=== PATIENT | female | born 1990 | race Caucasian/White ===

== ENCOUNTER 2024-10-17 19:58 | Inpatient (IN) ==
[2024-10-17] MEDS ORDERED: LIDOCAINE 1% LOCAL 20 ML VIAL INFIL PRN (20:22)
[2024-10-17] MEDS ORDERED: CALCIUM CARBONATE 500 MG CHEWABLE TAB PO PRN (20:22)
--- NOTE | 2024-10-17 20:27 | History & Physical Report ---
Date of Service October 17, 2024 Assessment & Plan (1) Active labor at term: Plan: 34-year-old -0-0-1 at 39 weeks 1 day gestation presenting today in active labor, Vital signs stable afebrile, heart rate reassuring, GBS negative, Plan to admit, monitor, labs, epidural for pain, anticipate , All questions were answered. History of Present Illness Chief Complaint: Contractions Primary Care Provider: Anil Avila DO Patient is a 34 yo at 39.1 wks who has been feeling contractions since 4 pm, got more regular and painful about 1-2 hours ago No LOF/VB +FM Her has been complicated by 1) h/o Thyroid ca, s/p total thyroidectomy in 2021, iodine ablation 2) anemia GBS negative Allergies Allergy/AdvReac Type Severity Reaction Status Date / Time Penicillins Allergy Rash Verified 10/17/24 20:14 Home Medications Medication Instructions Recorded Confirmed Type levothyroxine 150 mcg tablet 150 mcg PO DAILY 10/17/24 10/17/24 History [id number]-FA 1 mg 1 tab PO DAILY 10/17/24 10/17/24 History tablet Patient History Medical History Clomid Retained placenta Hypothyroid Thyroid cancer Social History Smoking Status: Never smoker Hx Alcohol Use: No Hx Substance Use: No Preferred Language: Citizen Of [place] Communication Ability: Effective [employer] Required: No Beliefs That Will Affect Care: None marital status: Maried Current Living Situation: Family Other Information That Helps Us Care for You: No Feels Safe at Home: Yes Safety Concerns: Feels Safe At This Time Assistive Devices: None OB History FT in 2019, 9 LB OXYACETYLENE BURNER History No h/o STD's, no h/o chlamydia/ GC/ HSV Review of Systems as per Subjective / HPI Physical Exam Constitutional: WD/WN, vitals as above well developed, well nourished, + acute distress (with contractions) and + thin Gastrointestinal (Abdomen): normal bowel sounds, soft, nontender, no hepatosplenomegaly Genitourinary: normal external appearance OB Exam Abdomen: + vertex Manual OB Exam: + cervical dilation 5 cm, + cervical effacement 70% and + station -2 OB Exam Monitor Tracing: + external uterine monitor used and + category I Results & Data Vital Signs (Past 12 Hours) Vital Signs Pulse BP 10/17/24 20:06 86 124/76
[2024-10-17] MEDS ORDERED: ePHEDrine sulfate 50 MG/ML AMP ONE (21:00)
[2024-10-17] MEDS: LACTATED RINGER'S 1,000 ML IV SCH (21:00)
[2024-10-17 21:28] LABS: Hematocrit (blood only) 33.9 % (37.0-47.0); Hemoglobin 11.7 g/dl (12.0-16.0); Mean Corpuscular Hemoglobin 31.9 pg (25.0-34.0); Mean Corpuscular Hgb Conc 34.5 g/dL (32.0-36.0); Mean Corpuscular Volume 92.4 fL (80.0-100.0); Mean Platelet Volume 12.7 fL (9.4-12.4); Platelet Count 162 K/uL (130-400); RDW Coefficient of Variation 12.2 % (11.5-14.5); Red Blood Count 3.67 M/uL (4.20-5.40); White Blood Count 9.05 K/ul (4.8-10.8)
[2024-10-17] MEDS ORDERED: BUPIVACAINE 0.25% PF 30 ML VIAL EPI PRN (21:50)
[2024-10-17] MEDS ORDERED: fentaNYL citrate PF 100 MCG/2 ML VIAL EPI PRN (21:50)
[2024-10-17] MEDS ORDERED: fentANYL 2 MCG/ML BUPIVacaine 0.125%-NSS 100ML BAG EPI PRN (21:50)
[2024-10-17] MEDS ORDERED: diphenhydrAMINE 50 MG/ML VIAL IV PRN (21:50)
[2024-10-17] MEDS ORDERED: NALOXONE HCL 0.4 MG/1 ML VIAL/CARP IV PRN (21:50)
[2024-10-17] MEDS ORDERED: ROPIVACAINE 0.5% PF 5 MG/ML 20 ML VIAL EPI PRN (21:50)
[2024-10-17] MEDS ORDERED: ePHEDrine sulfate 50 MG/ML AMP IV PRN (21:50)
[2024-10-17] MEDS ORDERED: SODIUM CHLORIDE 0.9% PF INJ 10 ML VIAL EPI PRN (21:50)
[2024-10-17] MEDS ORDERED: NALBUPHINE HCL INJ 10 MG/ML AMP IV PRN (21:50)
[2024-10-17] MEDS ORDERED: LIDOCAINE 2% MPF LOCAL 5 ML VIAL EPI PRN (21:50)
[2024-10-17] MEDS ORDERED: NALOXONE HCL 1 MG in SODIUM CHLORIDE 0.9% 1,000 ML IV PRN (21:50)
--- NOTE | 2024-10-17 21:50 | Anesthesiology Consultation ---
Date of Service October 17, 2024 Assessment & Plan (1) Encounter for pre-operative examination: Chart Review Chart Review: Patient NOT seen in Pre Admission Testing and Acceptable Risk for Labor Epidural Consults Requested none History Height/Weight Height: 5 ft 8 in Weight: 68.039 kg Allergies Allergy/AdvReac Type Severity Reaction Status Date / Time Penicillins Allergy Rash Verified 10/17/24 20:14 Medications Home Medications Medication Instructions Recorded Confirmed Last Taken levothyroxine 150 mcg tablet 150 mcg PO DAILY 10/17/24 10/17/24 1 Day Ago ~10/16/24 pzjmhobs-wjf-Mj-FA 1 mg 1 tab PO DAILY 10/17/24 10/17/24 1 Day Ago tablet ~10/16/24 Past Medical History Medical History Clomid Retained placenta Hypothyroid Thyroid cancer Social History Smoking Status: Never smoker Hx Alcohol Use: No Hx Substance Use: No Physical Exam Vital Signs Last Vital Signs Temp 98.2 F 10/17/24 20:16 Pulse 75 10/17/24 21:48 Resp 16 10/17/24 20:16 BP 124/76 10/17/24 20:06 Pulse Ox 96 10/17/24 21:48 Testing Laboratory Results 10/17/24 21:02
[2024-10-17] MEDS: fentANYL 2 MCG/ML BUPIVacaine 0.125%-NSS 100ML BAG ONE (22:08)
[2024-10-17] MEDS: LIDOCAINE 2%/EPINEPHRINE 1:200,000 20 ML PF ONE (22:08)
[2024-10-17] MEDS: BUPIVACAINE 0.25% PF 30 ML VIAL EPI STA (22:08)
[2024-10-17] MEDS: BUPIVACAINE 0.25% PF 30 ML VIAL ONE (22:08)
[2024-10-17] MEDS: SODIUM CHLORIDE 0.9% PF INJ 10 ML VIAL ONE (22:08)
[2024-10-17] MEDS: fentaNYL citrate PF 100 MCG/2 ML VIAL EPI STA (22:09)
[2024-10-17] MEDS: LIDOCAINE 2%/EPINEPHRINE 1:200,000 20 ML PF EPI STA (22:09)
[2024-10-17] MEDS: SODIUM CHLORIDE 0.9% PF INJ 10 ML VIAL EPI STA (22:09)
[2024-10-17] MEDS: fentaNYL citrate PF 100 MCG/2 ML VIAL ONE (22:10)
--- NOTE | 2024-10-17 23:43 | Obstetrical Progress Note ---
Date of Service October 17, 2024 Assessment & Plan Admission and Anticipated Discharge Date Admission Date: October 17, 2024 Subjective Patient is reevaluated She received epidural and comfortable now. VE; 6-7 cm/ 50%/ -2, AROM'ed, blood stained amniotic fluid VSS Afebrile FHR categ I Contractions spaced out Plan to augment with oxytocin Continue to monitor closely Results & Data Vital Signs (Past 12 Hours) Vital Signs Temp Pulse Resp BP Pulse Ox 10/17/24 23:38 90 100 10/17/24 23:33 63 100 10/17/24 23:28 72 100 10/17/24 23:25 92 H 106/67 10/17/24 23:23 63 99 10/17/24 23:18 90 99 10/17/24 23:13 91 H 98 10/17/24 23:12 83 108/67 10/17/24 23:08 85 98 10/17/24 23:03 90 99 10/17/24 22:58 87 105/67 100 10/17/24 22:53 89 100 10/17/24 22:50 16 10/17/24 22:50 16 10/17/24 22:48 109 H 100 10/17/24 22:43 99 H 100 10/17/24 22:38 85 100 10/17/24 22:35 88 112/66 10/17/24 22:33 94 H 98 10/17/24 22:30 100 H 16 114/64 10/17/24 22:28 64 99 10/17/24 22:26 83 108/66 10/17/24 22:23 92 H 99 10/17/24 22:19 87 110/68 10/17/24 22:18 89 100 10/17/24 22:17 107 H 16 110/67 10/17/24 22:16 100 H 108/65 10/17/24 22:14 112 H 105/62 10/17/24 22:13 94 H 99 10/17/24 22:12 96 H 113/66 10/17/24 22:10 99 H 123/75 10/17/24 22:08 77 98 10/17/24 22:07 70 123/82 91 10/17/24 22:03 69 98 10/17/24 21:58 74 100 10/17/24 21:53 70 97 10/17/24 21:52 80 94 10/17/24 21:48 75 96 10/17/24 21:43 70 98 10/17/24 20:16 36.8 C 16 10/17/24 20:06 86 124/76
[2024-10-18] MEDS: OXYTOCIN 30 UNITS/NSS 30 UNITS/500 ML BAG IV PRN ×2 (00:12→01:06)
[2024-10-18] MEDS ORDERED: bisacodyL 10 MG SUPP PR PRN (01:28)
[2024-10-18] MEDS ORDERED: BENZOCAINE 20% SPRY 85 APPLN/85 GM CAN EXT PRN (01:28)
[2024-10-18] MEDS ORDERED: MEASLES, MUMPS & RUBELLA VIRUS VACCINE (MMR) 0.5ML VIAL SQ ONE (01:28)
[2024-10-18] MEDS ORDERED: OXYTOCIN 30 UNITS/NSS 30 UNITS/500 ML BAG IV PRN (01:28)
[2024-10-18] MEDS ORDERED: DIPHTHER/TETAN/PERTUS Vaccine (Tdap, Adol/Adult) 0.5mL IM ONE (01:28)
[2024-10-18] MEDS ORDERED: HYDROCORTISONE ACETATE 25 MG SUPP PR PRN (01:28)
--- NOTE | 2024-10-18 01:32 | Delivery Summary ---
Vaginal Delivery Summary Date of Service October 18, 2024 Vaginal Delivery Summary Patient was found to be fully dilated and desired to push. She pushed with 2 contractions only and delivered the head and then shoulders with minimal traction at 01:00 am. The baby was handed off to the mother. The cord was clampedx2 and cut at 1 minute. The vagina and perineum were checked and found to have 1st degree perineal and right labial laceration. Labial one was repaired with 3 -0 Vicryl on SH needle with [id number] stitches x 2. And the perineal laceration was repaired with 3-0 Vicryl in a continuous fashion. The placenta was delivered spontaneously as intact and complete. The uterus was explored and found to be empty. QBL was 244 ml. The fundus was firm The baby was a viable male infant, Apgars 8/9, the weight is pending The mother and the baby tolerated the procedure well. No complications happened and I was present during whole procedure.
[2024-10-18] MEDS: IBUPROFEN 600 MG TAB PO PRN (04:25)
--- NOTE | 2024-10-18 06:22 | Anesthesia Procedure Note ---
Date of Service October 18, 2024 Anesthesia Post Epidural Note Vital Signs Vital Signs: Temp Pulse Resp BP Pulse Ox O2 Del Method 97.3 F L 66 16 109/70 98 Room Air 10/18/24 04:10 10/18/24 04:10 10/18/24 04:10 10/18/24 04:10 10/18/24 04:10 10/18/24 04:10 Notes Mental Status: alert / awake / arousable and participated in evaluation Nausea / Vomiting: adequately controlled Pain: adequately controlled Airway Patency, RR, SpO2: stable & adequate BP & HR: stable & adequate Hydration State: stable & adequate Neuraxial Anesthesia: was administered and sensory block is resolving Anesthetic Complications: no major complications apparent and Pt Satisfied with anesthetic care Epidural: Removed without complications and With tip intact
[2024-10-18] MEDS: ACETAMINOPHEN 325 MG TAB PO PRN (06:36)
[2024-10-18] MEDS: PRENATAL VITAMIN 1 TAB PO SCH (08:51)
[2024-10-18] MEDS: FERROUS SULFATE 325 MG TAB PO SCH (08:52)
[2024-10-18] MEDS: DOCUSATE SODIUM 100 MG CAP PO SCH (08:53)
[2024-10-18] MEDS ORDERED: NON-FORMULARY MEDICATION (Prenatal Multivit-Min-Fe-Fa 1 mg Tablet) PO SCH (09:00)
[2024-10-18] MEDS: LEVOTHYROXINE SODIUM 150 MCG TABLET PO SCH (12:02)
[2024-10-18] MEDS ORDERED: Nursing to Pharmacy Communication SCH ×2 (14:00→17:15)
[2024-10-18] MEDS: oxyCODONE/ACETAMINOPHEN 5mg/325mg TAB PO PRN (16:09)
[2024-10-18] MEDS ORDERED: oxyCODONE/ACETAMINOPHEN 5mg/325mg TAB PO PRN (17:12)
[2024-10-18] MEDS: BUTORPHANOL TARTRATE 2 MG/ML VIAL IV ONE (22:28)
[2024-10-18 23:09] VITALS: TEMP 97.5
--- OUTSIDE RECORDS SUMMARY | 2024-10-18 23:10 | External Medical Summary ---
Author Name Unknown Address Unknown Organization [id number][place] [place] [address] [place] [id number] Laboratory Report Ordering Provider Test Date Status DINORA MCKEON 10/09/2024 09:05:33 Final Observation Date Value Abnormality Reference (Units ) Status Thyroglobulin Ab 10/09/2024 09:05:33 15.6 <22 .0 (IU/mL) Final Performing Location [facility] [place] [address] [place] [address]
--- OUTSIDE RECORDS SUMMARY | 2024-10-18 23:10 | External Medical Summary | Summary of Care ---
Author Name Unknown Organization [facility] Address [address] [place] [address] Phone [phone] Care Team Providers Care Shoe Polisher Name Role Phone Anil Avila DO Primary Care Provider [phone] Reason for Visit * Reason Comments Return Visit Encounter Details Date Type Department Care Team (Late st Contact Info) Description 10/09/2024 8:45 AM EST Office Visit Gynecology/Obstetric s William Raphael [address] [place] [address] BackCherelle mays CRNP [address] [place] [address] Encounter for supervision of other normal in third trimester*; Antepartum anemia complicating ; History of thyroid cancer; History of retained placenta in prior , currently ; History of delivery of macrosomal ; Multigravida of advanced maternal age in third trimester; associated with use of clomiphene, currently in third trimester; History of respiratory syncytial virus (RSV) vaccination Allergies Active Allergy Reactions Criticality Noted Date Comments Penicillins Rash Medium 12/09/2005 documented as of this encounter (statuses as of 10/09/2024) Medications Complete Oral Capsule Therapy Pack Take by mouth. Ac tive Iron-Vitamin C 65-125 MG Oral Tablet (Vitron C)Indications:Ant epartum anemia complicating Take 1 Tablet by mouth in the morning and 1 Tablet before bedtime. 60 Tablet 3 4 Active Levothyroxine Sodium 150 MCG Oral Tablet (Levoxyl)Indicati ons:Hypothyroidis m, unspecified type TAKE 1 TABLET BY MOUTH IN THE MORNING. (AT LEAST 30 MIN PRIOR TO BREAKFAST OR OTHER MEDS). 30 Tablet 3 4 Active Breast Pump Dispense double electric breast pump. Dx:Z39.1 1 Each 4 Active documented as of this encounter (statuses as of 10/09/2024) Active Problems Problem Noted Date Diagnosed Date History of respiratory syncytial virus (RSV) vac cination 09/04/2024 Overview (09/04/2024): 09/04/24 History of delivery of macrosomal 024 Overview (07/10/2024): First baby 9lb4oz AMA (advanced maternal age) multigravida 35+ Overview (07/10/2024): Will be 34 at time of delivery Clomid 07/10/2024 Supervision of normal 04/11/2024 History of thyroid cancer 04/11/2024 Overview (07/10/2024): TSH Results: Lab Results Component Value Date/Time TSH - [facility] 1.34 06/13/2024 03:22 PM TSH - [facility] 1.02 04/11/2024 02:36 PM TSH - [facility] 1.35 03/28/2024 09:31 AM TSH - [facility] 2.17 11/17/2020 11:25 AM TSH - [facility] 1.09 09/15/2020 11:27 AM TSH - [facility] 2.25 08/19/2020 09:54 AM History of retained placenta in prior , currently 04/11/2024 DAY (generalized anxiety disorder) 01/05/2023 Thyroid cancer 03/24/2022 Hypothyroidism 03/24/2022 Antepartum anemia complicating 020 Family history of spina bifida 05/26/2020 Assessment & Plan (07/14/2020 11:22 AM EDT): She states that her [id number] has a history of some type of spina bifida and scoliosis. We reviewed the results of today's ultrasound. The estimated weight is appropriate for gestational age. The visualized anatomy is unremarkable in appearance. No spine abnormalities are appreciated. The amniotic fluid amount appears normal. We discussed that ultrasound is not able to identify all anomalies, but it is reassuring that no anomalies were seen today. Seasonal allergies 03/05/2015 Estimated Date of Delivery Comme nts Yes 10/24/2024 Based on last me nstrual period of 01/18/2024 (Exact Date) documented as of this encounter (statuses as of 10/09/2024) Resolved Problems Problem Noted Date Diagnosed Date Resolved Date Supervision of high-risk pre gnancy, unspecified trimester 11/17/2020 01/26/2021 Need for rubella vaccination 10/15/2020 03/24/2022 Hypothyroidism affecting pre gnancy in second trimester 07/08/2020 01/26/2021 Overview (07/08/2020): She currently follows [facility] for management of geovanna thyroiditis. She was initially diagnosed in 12/2019 after evaluation of thyroid nodule. She had a TSH of 10.5 on 05/27/20. More recently, she had a TSH of 6.37 and free T4 of 1.09 after increase of Levoxyl from 50 to 85 mcg daily. She reports compliance with Levoxyl treatment as prescribed. Assessment & Plan (07/14/2020 11:21 AM EDT): She has a history of hypothyroidism and is following with endocrinology (next appointment scheduled for today). Her TSH has been as follows: 04/30/2020 05/26/2020 07/08/2020 TSH 10.50 (H) 6.37 (H) 3.64 I recommended that she continue to follow with endocrinology to achieve a goal TSH under 3. If she obtains stable levels under the goal TSH, then no further ultrasounds are necessary. Assessment & Plan (07/08/2020 1:48 PM EDT): DISCUSSION: 1. Discussed with the patient that uncontrolled maternal hypothyroidism is associated with compromised neuropsychological development of the developing fetus in addition to an increased risk of miscarriage, , pre-eclampsia, placental abruption, low weight infants, and IUFD. These risks are modifiable with thyroid-replacement medications. Thyroid-replacement therapies are safe to use during and essential to normal development. One third of hypothyroid patients will require increased T4 supplementation in . 2. Discussed that she should space her thyroxine dose and her vitamin, iron or calcium doses by 2-3 hours as these can interfere with thyroxine absorption. RECOMMENDATIONS: 1. In women with prepregnancy diagnosis of hypothyroidism, recommend assessing TSH every 4-6 weeks until the patient is euthyroid based on TSH (first trimester, 0.1-2.5 mIU/L; second trimester, 0.2-3.0 mIU/L; third trimester, 0.3-3.0 mIU/L. 2. After any adjustment of thyroid replacement dosing, recheck TSH 4 weeks later. 3. Once euthyroidism is attained, TSH should be assessed every trimester. 4. In those with previous radioiodine ablation or thyroidectomy, anticipatory increases of T4 replacement by 25% are suggested to decrease the likelihood of significant hypothyroidism in . 5. Maternal Medicine ultrasound is only indicated if patient requires an adjustment of her thyroid replacement therapy dosing after the first trimester of . Refer back to Maternal Medicine if this occurs. She should continue to have growth assessments with Maternal Medicine while she is clinically hypothyroid. 6. If patient experiences thyroid goiter or nodule during , we recommend that she be referred to endocrinology for evaluation and management. is not a contraindication to fine needle aspiration, but should be handled at the discretion of the cfd engineer. High-risk , second trimester 05/26/2020 11/17/2020 Overview (07/08/2020): The father of the baby's mother has a reported history of spina bifida and scoliosis which she has required surgical intervention for. Of note, the patient and FOB do not have any history of congenital defects or known inherited disorders. Patient completed the quad screen on 06/16/20, which was negative for ONTD, Trisomy 18 and 21. Assessment & Plan (07/08/2020 1:51 PM EDT): Given patient's remote family history FOB mother) the baseline risk of spina bifida is not increased. Most cases of spina bifida are sporadic, which means they occur in people with no history of the disorder in their family. A small percentage of cases have been reported to run in families; however, the condition does not have a clear pattern of inheritance. Thyroid dysfunction in pregn sydnee, unspecified trimester 05/26/2020 03/24/2022 Rubella non-immune status, antepartum 05/07/2020 03/24/2022 Acne 04/05/2011 05/13/2016 Adjustment disorder with depressed mood 05/13/2016 Allergy-induced asthma 08/17 documented as of this encounter (statuses as of 10/09/2024) Immunizations Name Administration Dates Next Due DTaP Dipth/Tet/Acell Pertussis (Infanrix), Peds 03/03/1994,04/02/1991,04/17/1990,12/1989,1989 H1N1 2009 Influenza, IM 10/17/2009 HEP A - Hepatitis A (Adult > 18 yrs) 11/07/2010, 06/18/2008 HIB PRP-OMP, 3 dose (Pedvax) 12/29/1990 HPV Vaccine, 4-Valent 03/05/2015 05/05/2015 Hepatitis B, 0-19 yrs 04/18/2002,05/22/2001,03/29 MMR - Measles/Mumps/Rubella Vaccine 11/30/2020,0 03/03/1994,12/29/1990 Meningococcal Conjugate Vacc ine (Menactra/Menveo) 06/18/2008 OPV - Polio Virus Vaccine (Oral) 994,04/02/1991,02/27/1990,11/28 RSV Vac., Bivalent, Perfusio n F, Pf,0.5 Ml (Abrysvo) 09/04/2024 Seasonal Influenza, PF, 6 M & above, IM , (FluLaval or Fluzone) 08/17/2023,09/12/2021,08/19/2020,1011/2018 Seasonal Influenza, Quadriva lent, No Preserve, IM 12/23/2011,11/07/2010 Seasonal Influenza, Trivalen t, (IIV3), PF, (Fluzone) 08/21/2024 TD, Preservative Free 05/22/2001 TDAP (age 10 and older)(Boostrix) 09/01/2020 TDAP, Age 7 and older, IM (Adacel) 08/21/2024, Varicella Vaccine (Chicken Pox) 05/23/1995 documented as of this encounter Social History Tobacco Use Types Packs/Day Years Used Date Smoking Tobacco: Never Smokeless Tobacco: Never Alcohol Use Standard Drinks/Week Comments Not Currently 0 (1 standard drink = 0.6 oz pur e alcohol) PHQ-2 Answer Date Recorded PHQ-2 Score 0 08/28/2019 Hunger Vital Sign Answer Date Recorded Within the past 12 months, y ou worried that your food would run out before you got the money to buy more. Never true 04/11/20 24 Within the past 12 months, t he food you bought just didn't last and you didn't have money to get more. Never true 04/11/2024 Doddridge Depression Scale Answer Date Recorded Doddridge Depression Scale Total 6 09/04/2024 The thought of harming myself has occurred to me . Never 09/04/2024 Childcare Answer Date Recorded Do you feel overwhelmed with taking care of a child, family member or friend? No 04/11/2024 Does your family need help f inding childcare? (Household - for ages 0-17 years) Not on file 04/11/2024 Clothing Answer Date Recorded Have you been unable to get clothing when it was really needed? No 04/11/2024 Is your family able to get c lothes or diapers when needed? (Household - for ages 0-17 years) Not on file 04/11/2024 Personal Safety Answer Date Recorded Do you feel unsafe or have concerns for your saf ety? No 04/11/2024 Do you have concerns for you r family's safety? (Household - for ages 0-17 years) Not on file 04/11/2024 Utilities Answer Date Recorded Do you have trouble paying y our heating, water, or electric bill? No 04/11/2024 Is your family able to pay t he heat, water, or electric bill? (Household - for ages 0-17 years) Not on file 04/11/2024 Does your family have access to good internet? (Household - for ages 0-17 years) Not on file 04/11/2024 Employment Status Answer Date Recorded Are you unemployed or without regular income? No 04/11/2024 Does the household have a re gular source of income? (Household - for ages 0-17 years) Not on file 04/11/2024 Social Connections Answer Date Recorded How often do you feel lonely or isolated from th ose around you? Rarely 04/11/2024 Financial Resource Strain Answer Date R ecorded Do you have any trouble payi ng for your medications, or do you think you might in the future? No 04/11/2024 Does your family have troubl e paying for medicine? (Household - for ages 0-17 years) Not on file 04/11/2024 Transportation Needs Answer Date Record ed READ ONLY Do you have troubl e getting a ride to medical visits or work? Never True 04/11/2024 Does your family have a hard time getting a ride to doctors visits? (Household - for ages 0-17 years) Not on file 04/11/2024 Has lack of transportation k ept you from medical appointments, meetings, work, or from getting things needed for daily living? Check all that apply. (Adult - for ages 18 years and over) Not on file 04/11/2024 Do you (or your family) have trouble finding or paying for a ride (transportation)? (Household - for ages 0-17 years) Not on file 04/11/2024 Housing Stability Answer Date Recorded Do you currently live in a s helter or have no steady place to sleep at night? No 04/11/2024 READ ONLY Do you think you a re at risk of becoming homeless? No 04/11/2024 Does your family worry about paying for your home or becoming homeless? (Household - for ages 0-17 years) Not on file 0 04/11/2024 Are you homeless or worried that you might be in the future? (Adult - for ages 18 years and over) Not on file Are you (or your family) jose eless or worried that you might be in the future? (Household - for ages 0-17 years) Not on file Food Insecurity Answer Date Recorded Do you need food for this week? No 04/11/2024 Are you able to get enough f ood for your family? (Household - for ages 0-17 years) Not on file 04/11/2024 Does your family need food t his week? (Household - for ages 0-17 years) Not on file 04/11/2024 Do you always have enough fo od for your family? 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 Answer Date of Assessment Author No 12/22/2021 11:58 AM Chrissy Perry RN * Are you blind or do you have serious difficulty seeing, even when wearing glasses? Answer Date of Assessment Author No 12/22/2021 11:58 AM Chrissy Perry RN * Do you have serious difficulty walking or climbing stairs? (5 years old or older) Answer Date of Assessment Author No 12/22/2021 11:58 AM Chrissy Perry RN * Do you have difficulty dressing or bathing? (5 years old or older) Answer Date of Assessment Author No 12/22/2021 11:58 AM Chrissy Perry RN * Because of a physical, mental, or emotional condition, do you have difficulty doing errands alone such as visiting a doctors office or shopping? (15 years old or older) Answer Date of Assessment Author No 12/22/2021 11:58 AM Chrissy Perry RN documented as of this encounter Mental Status * Because of a physical, mental, or emotional condition, do you have serious difficulty concentrating, remembering, or making decisions? (5 years old or older) Answer Entry Date Author No 12/22/2021 11:58 AM Chrissy Perry RN documented in this encounter Progress Notes * Cherelle Mayers CRNP - 10/09/2024 9:00 AM EST 37w6d No timeable contractions. Denies leaking/bleeding. Good movement. 1 week return CHRISTIAN Alvares documented in this encounter Plan of Treatment Upcoming Encounters Date Type Department Care Team (Late st Contact Info) Description 10/09/2024 9:50 AM EST Laboratory Laboratory, [facility] [address] [place] [address] [facility] [address] [place] [address] Arrived 10/16/2024 2:15 PM EST Office Visit Gynecology/Obstetrics [facility] [address] [place] [address] Leigh Amador CRNP [address] [facility] [place] [phone] 09/17/2025 2:00 PM EDT Imaging Radiology [facility] 2nd [facility] [address] [place] [address] 09/27/2025 3:10 PM EDT Telemedicine Endocrinology [address] [place] [phone] Domitila Omalley MD [address] [place] [address] Scheduled Procedures Name Priority Associated Diagnoses Date/Ti me COLONOSCOPY FLEXIBLE PROXIMAL DIAGNOSTIC Recall Screen for colon cancer Health Maintenance Due Date Last Done Comments HPV (Gardasil) Vaccine (2 - 3-dose series) 04/02/2015 03/05/2015 Depression Screening 08/28/2020 08/28/2019 COVID-19 Vaccine ( season) 2024 02/04/2021, 01/14/2021 TSH 09/04/2025 09/04/2024, 06/29, 06/13/2024, Additional history exists Pap Smear 08/22/2026 08/22/2023, 04/2020, 01/22/2014 Cervical Cancer Screening 08/22/2028 HPV/Co-Test 08/22/2028 08/22/2023 DTap/Tdap Vaccines (9 - Td or Tdap) 08/21/2034 08/21/2024, 09/01/2020, 06/18/2008, Additional history exists Hepatitis B Vaccine Completed 04/18/2002, 05/22/2001, 04/20/2001 MENINGOCOCCAL (MENACTRA/MENVEO) Completed 06/18/2008 Influenza Vaccine (FLU shot) Completed , 08/17/2023, 09/12/2021, Additional history exists Pneumococcal Vaccine: Pediatrics (0 to 5 Years) and At-Risk Patients (6 to 64 Years) Aged Out No longer eligible based on patient's age to complete this topic documented as of this encounter Medical Devices Not on filedocumented as of this encounter Visit Diagnoses Diagnosis Hypothyroidism affecting in second trimester- Primary High-risk , second trimester Family history of spina bifida Family history of congenital anomalies Other specified related conditions, second trimester Encounter for supervision of other normal in third trimester- Primary Antepartum anemia complicating Anemia, antepartum History of thyroid cancer Personal history of malignant neoplasm of thyroid History of retained placenta in prior , currently with other poor obstetric history History of delivery of macrosomal infant Multigravida of advanced maternal age in third trimester associated with use of clomiphene, currently in third trimester History of respiratory syncytial virus (RSV) vaccination documented in this encounter Advance Directives * Full Code (Latest Code Status on File) Date Activated Date Inactivated Comments 12/22/2021 11:01 AM 12/23/2021 1:25 PM This order reflects the patients wishes and were consensually agreed upon. * Full Code Date Activated Date Inactivated Comments 11/27/2020 10:21 PM 11/30/2020 7:08 PM This order reflects the patients wishes and were consensually agreed upon. Care Teams Shoe Polisher Relationship Specialty Start Date End Date Anil Avila DO [address] [place] [address] PCP - General Family Medicine 08/16/23 documented as of this encounter
--- OUTSIDE RECORDS SUMMARY | 2024-10-18 23:10 | External Medical Summary ---
Author Name Unknown Address Unknown Organization [id number]:[facility] - [address] [place] [address] Laboratory Report Ordering Provider Test Date Status DINORA MCKEON 10/09/2024 09:05:33 Final Observation Date Value Abnormality Reference (Units ) Status T4, Free 10/09/2024 09:05:33 1.2 0.9-1.7 (n g/dL) Final Performing Location [facility] - [address] [place] [address]
--- OUTSIDE RECORDS SUMMARY | 2024-10-18 23:10 | External Medical Summary ---
Author Name Unknown Address Unknown Organization [id number]:[facility] - [address] [facility] [address] Laboratory Report Ordering Provider Test Date Status DINORA MCKEON 10/09/2024 09:05:33 Final Observation Date Value Abnormality Reference (Units ) Status TSH 10/09/2024 09:05:33 0.24 Below low normal 0.2 7-4.20 (uIU/mL) Final Performing Location LABORATORY [facility] - [address] [facility] [address]
--- OUTSIDE RECORDS SUMMARY | 2024-10-18 23:10 | External Medical Summary ---
Author Name Unknown Address Unknown Organization : Laboratory Report Ordering Provider Test Date Status DINORA MCKEON 10/09/2024 09:05:33 Final Observation Date Value Abnormality Reference (Units ) Status Thyroglobulin 10/09/2024 09:05:33 <0.1 Below low normal 2.8-40.9 (ng/mL) Final Intact Thyroid: 2.8-40.9 ng/ mL
Athyrotic: <0.1 ng/mL
Note: Abnormal flagging is based upon the reference
interval for patients with intact thyroid.
This test was performed using the [employer]
chemiluminescent method. Values obtained from
different assay methods cannot be used inter-
changeably. Thyroglobulin levels, regardless
of value, should not be interpreted as absolute
evidence of the presence or absence of disease. comment 10/09/2024 09:05:33 SEE BELOW Final Thyroglobulin antibodies (TG AB) interfere with
thyroglobulin (TG) assays; therefore, TGAB assay
should always be performed in conjunction with a
TG assay.
For additional information, please refer to
https://education.[employer]/faq/IEC760
(This link is being provided for informational/
educational purposes only.)

Test Performed at:
[facility]
[address]
[place] [address]
Dangelo Florentino M.D., Ph.D.,Director of Laboratories Performing Location
--- OUTSIDE RECORDS SUMMARY | 2024-10-18 23:10 | External Medical Summary | Summary of Care ---
Author Name Unknown Organization [facility] Address [address] [facility] [place] [address] Phone [phone] Care Team Providers Care Phlebotomist Associate Name Role Phone Anil Avila DO Primary Care Provider [phone] Reason for Visit * Reason Comments Return Visit Encounter Details Date Type Department Care Team (Late st Contact Info) Description 10/16/2024 2:15 PM EST Office Visit Gynecology/Obstetric s William Raphael [address] [place] [address] Leigh Amador CRNP [address] [place] [address] Encounter for supervision of other normal in third trimester*; Antepartum anemia complicating ; History of thyroid cancer; History of retained placenta in prior , currently ; History of delivery of macrosomal ; Multigravida of advanced maternal age in third trimester; associated with use of clomiphene, antepartum; History of respiratory syncytial virus (RSV) vaccination Allergies Active Allergy Reactions Criticality Noted Date Comments Penicillins Rash Medium 12/09/2005 documented as of this encounter (statuses as of 10/16/2024) Medications Complete Oral Capsule Therapy Pack Take [...] as of this encounter (statuses as of 10/16/2024) Active Problems Problem Noted Date Diagnosed Date History of respiratory syncytial virus (RSV) vac cination 09/04/2024 Overview (09/04/2024): 09/04/24 History of delivery of macrosomal infant 024 Overview (07/10/2024): First baby 9lb4oz AMA [...] 11:22 AM EDT): She states that her hwmkmv-en-hvo has a history of some type of [...] as of this encounter (statuses as of 10/16/2024) Resolved Problems Problem Noted Date Diagnosed Date Resolved Date Supervision of high-risk pre gnancy, unspecified trimester 11/17/2020 01/26/2021 Need for rubella vaccination 10/15/2020 03/24/2022 Hypothyroidism affecting pre gnancy in second trimester 07/08/2020 01/26/2021 Overview (07/08/2020): She currently [place] [facility] [place] for management of geovanna thyroiditis. She [...] be handled at the discretion of the 1 year olds preschool teacher. High-risk , second trimester 05/26/2020 11/17/2020 Overview [...] as of this encounter (statuses as of 10/16/2024) Immunizations Name Administration Dates Next Due DTaP [...] & above, IM , (FluLaval or Fluzone) 08/17/2023,09/12/2021,08/19/2020,11/2018 Seasonal Influenza, Quadriva lent, No Preserve, IM [...] money to get more. 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 Baby is active. No bleeding or LOF. Asking for cervical check. Electromechanical Equipment Assembler Documentation Provider requested sand control worker. Name of sand control worker: Hortencia Discussed IOL. Last baby was over 9lbs, was 5 days overdue. Would like to avoid being that far overdue again. Call to L&D to schedule IOL. Only available date is this Tuesday. Pt accepted, but will call later this week to see if anything becomes available for next week instead. CHRISTIAN Peacock * Hortencia Denis CMA - 10/16/2024 2:16 PM EST 38w6d + cramping/back pain + contractions for 3-4 hours yesterday Requesting cervical check today Denies LOF documented in this encounter Plan of Treatment Upcoming Encounters Date Type Department Care Team (Late st Contact Info) Description 10/23/2024 8:00 AM EST Office Visit Gynecology/Obstetrics [facility] [address] [place] [address] Leigh Amador CRNP [address] [place] [address] 09/17/2025 2:00 PM EDT Imaging Radiology [facility] [address]nd [address] [place] [address] 09/27/2025 3:10 PM EDT Telemedicine Endocrinology [address] [place] [phone] Domitila Omalley MD [address] [facility] [place] [address] Scheduled Procedures Name Priority Associated Diagnoses Date/Ti me COLONOSCOPY FLEXIBLE PROXIMAL DIAGNOSTIC Recall Screen for colon cancer Health Maintenance Due Date Last Done Comments HPV (Gardasil) Vaccine (2 - 3-dose series) 04/02/2015 03/05/2015 Depression Screening 08/28/2020 08/28/2019 COVID-19 Vaccine ( season) 2024 02/04/2021, 01/14/2021 TSH 10/09/2025 10/09/2024, 06/2024, 07/24/2024, Additional history exists Pap Smear 08/22/2026 08/22/2023, [...] obstetric history History of delivery of macrosomal Multigravida of advanced maternal age in third trimester associated with use of clomiphene, antepartum History of respiratory syncytial virus (RSV) vaccination [...] and were consensually agreed upon. Care Teams Phlebotomist Associate Relationship Specialty Start Date End Date Anil Avila DO [address] [place] [address] PCP - General Family Medicine 08/16/23 documented as of this encounter
--- OUTSIDE RECORDS SUMMARY | 2024-10-18 23:10 | External Medical Summary | Summary of Care ---
Author Name Unknown Organization [facility] Address [address] [facility] [place] [address] Phone [phone] Care Team Providers Care Inflatable Buildings Laminator Name Role Phone Anil Avila DO Primary Care Provider [phone] Reason for Visit * Reason Comments Outpatient Testing Encounter Details Date Type Department Care Team (Late st Contact Info) Description 10/09/2024 9:50 AM EST [facility] [address] [facility] [address] [place] [address] Arrived Allergies Active Allergy Reactions Criticality Noted Date [...] double electric breast pump. Dx:Z39.1 1 Each 10/22/202 4 Active documented as of this encounter [...] 11:22 AM EDT): She states that her fkswbm-yd-qzd has a history of some type of [...] 07/08/2020 01/26/2021 Overview (07/08/2020): She currently follows [facility] endocrinology for management of geovanna thyroiditis. She [...] be handled at the discretion of the sample patternmaker. High-risk , second trimester 05/26/2020 11/17/2020 Overview [...] money to get more. 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 Not on file documented as of this encounter Functional Status * Are you [...] Assessment Author No 12/22/2021 11:58 AM Chrissy Peryr RN * Do you have difficulty dressing [...] Chrissy Perry RN documented in this encounter Plan of Treatment Upcoming Encounters Date Type Department Care Team (Late st Contact Info) Description 10/16/2024 2:15 PM EST Office Visit Gynecology/Obstetrics [address] [place] [address] Leigh Amador CRNP [address] [place] [address] 09/17/2025 2:00 PM EDT Imaging Radiology [facility] 2nd [facility] [address] [place] [address] 09/27/2025 3:10 PM EDT Telemedicine Endocrinology [address] [place] [phone] Domitila Omalley MD [address] [facility] [place] [address] Scheduled Procedures Name Priority Associated Diagnoses Date/Ti me COLONOSCOPY FLEXIBLE PROXIMAL DIAGNOSTIC Recall Screen for colon cancer Health Maintenance Due Date Last Done Comments HPV (Gardasil) Vaccine (2 - 3-dose series) 04/02/2015 03/05/2015 Depression Screening 08/28/2020 08/28/2019 COVID-19 Vaccine ( season) 2024 02/04/2021, 01/14/2021 TSH 09/04/2025 09/04/2024, 06/29, 06/13/2024, Additional history exists Pap Smear 08/22/2026 08/22/2023, 03/0 04/2020, 01/22/2014 Cervical Cancer Screening 08/22/2028 HPV/Co-Test [...] Not on filedocumented as of this encounter Advance Directives * Full Code (Latest Code Status on File) Date Activated Date Inactivated Comments 12/22/2021 11:01 AM 12/23/2021 1:25 PM This order reflects the patients wishes and were consensually agreed upon. * Full Code Date Activated Date Inactivated Comments 11/27/2020 10:21 PM 11/30/2020 7:08 PM This order reflects the patients wishes and were consensually agreed upon. Care Teams Inflatable Buildings Laminator Relationship Specialty Start Date End Date Anil Avila DO [address] [place] [address] PCP - General Family Medicine 08/16/23 documented as of this encounter
--- OUTSIDE RECORDS SUMMARY | 2024-10-18 23:11 | External Medical Summary | Summary of Care ---
Author Name Unknown Organization [facility] Address [address] [facility] [place] [address] Phone [phone] Care Team Providers Care Electronic Service Technician Name Role Phone Anil Avila DO Primary Care Provider [phone] Reason for Visit * Reason Comments Return Visit Encounter Details Date Type Department Care Team (Late st Contact Info) Description 10/03/2024 11:45 AM EST Office Visit Gynecology/Obstetric s William Raphael [address] [place] [address] BackCherelle mays CRNP [address] [place] [address] Encounter for supervision of other normal in third trimester*; Antepartum anemia complicating ; History of thyroid cancer; History of retained placenta in prior , currently ; History of delivery of macrosomal infant; Multigravida of advanced maternal age in third trimester; associated with use of clomiphene, currently in third trimester; History of respiratory syncytial virus (RSV) vaccination Allergies Active Allergy Reactions Criticality Noted Date Comments Penicillins Rash Medium 12/09/2005 documented as of this encounter (statuses as of 10/03/2024) Medications Medication Sig Dispensed Refills Start Date End Date Status Complete Oral Capsule Therapy Pack Take by mouth. Active Iron-Vitamin C 65-125 MG Oral Tablet (Vitron C)Indications:Antepar conrad anemia complicating Take 1 Tablet by mouth in the morning and 1 Tablet before bedtime. 60 Tablet 3 07/25/2024 Active Levothyroxine Sodium 150 MCG Oral Tablet (Levoxyl)Indications: Hypothyroidism, unspecified type TAKE 1 TABLET BY MOUTH IN THE MORNING. (AT LEAST 30 MIN PRIOR TO BREAKFAST OR OTHER MEDS). 30 Tablet 3 08/21/2024 Active Breast Pump Dispense double electric breast pump. Dx:Z39.1 1 Each 09/18/2024 Active documented as of this encounter (statuses as of 10/03/2024) Active Problems Problem Noted Date Diagnosed Date History of respiratory syncytial virus (RSV) vac cination 09/04/2024 Overview: 09/04/24 History of delivery of macrosomal infant 024 Overview: First baby 9lb4oz AMA (advanced maternal age) multigravida 35+ Overview: Will be 34 at time of delivery Clomid 07/10/2024 Supervision of normal 04/11/2024 History of thyroid cancer 04/11/2024 Overview: TSH Results: Lab Results Component Value Date/Time [...] 020 Family history of spina bifida 05/26/2020 Last Assessment & Plan: She states that her ivopoj-uk-rzd has a history of some type of [...] as of this encounter (statuses as of 10/03/2024) Resolved Problems Problem Noted Date Diagnosed Date Resolved Date Supervision of high-risk pre gnancy, unspecified trimester 11/17/2020 01/26/2021 Need for rubella vaccination 10/15/2020 03/24/2022 Hypothyroidism affecting pre gnancy in second trimester 07/08/2020 01/26/2021 Overview: She currently [place] [facility] [place] for management of geovanna thyroiditis. She was initially diagnosed in 12/2019 after evaluation of thyroid nodule. She had a TSH of 10.5 on 05/27/20. More recently, she had a TSH of 6.37 and free T4 of 1.09 after increase of Levoxyl from 50 to 85 mcg daily. She reports compliance with Levoxyl treatment as prescribed. Last Assessment & Plan: She has a history of hypothyroidism and is following with endocrinology (next appointment scheduled for today). Her TSH has been as follows: 04/30/2020 05/26/2020 07/08/2020 TSH 10.50 (H) 6.37 (H) 3.64 I recommended that she continue to follow with endocrinology to achieve a goal TSH under 3. If she obtains stable levels under the goal TSH, then no further ultrasounds are necessary. High-risk , second trimester 05/26/2020 11/17/2020 Overview: The father of the baby's mother has a reported history of spina bifida and scoliosis which she has required surgical intervention for. Of note, the patient and FOB do not have any history of congenital defects or known inherited disorders. Patient completed the quad screen on 06/16/20, which was negative for ONTD, Trisomy 18 and 21. Last Assessment & Plan: Given patient's remote family history FOB mother) [...] as of this encounter (statuses as of 10/03/2024) Immunizations Name Administration Dates Next Due DTaP [...] money to get more. Never true 04/11/2024 [place] Depression Scale Answer Date Recorded [place] Depression Scale Total 6 09/04/2024 The thought [...] Assigned at Female 08/28/2019 11:22 AM EDT Gender Identity Female 08/28/2019 11:22 AM EDT Sexual Orientation Straight 08/28/2019 11 :22 AM EDT Job Start Date Occupation Industry Not on file Not on file Not on file documented as of this encounter Last Filed Vital Signs Vital Sign Reading Time Taken Comments Blood Pressure 98/60 10/03/2024 11:15 AM EST Pulse - - Temperature - - Respiratory Rate - - Oxygen Saturation - - Inhaled Oxygen Concentration - - Weight 68 kg (150 lb) 10/03/2024 11:15 AM EST Height - - Body Mass Index 22.81 09/17/2024 1:23 PM EDT documented in this encounter Functional Status Functional Status Response Date of Assess ment Are you deaf or do you have serious difficulty h earing? No 12/22/2021 Are you blind or do you have serious difficulty seeing, even when wearing glasses? No 12/22/2021 Do you have serious difficul ty walking or climbing stairs? (5 years old or older) No 12/22/2021 Do you have difficulty dress ing or bathing? (5 years old or older) No 12/22/2021 Because of a physical, menta l, or emotional condition, do you have difficulty doing errands alone such as visiting a doctor s office or shopping? (15 years old or older) No 12/22/19 Cognitive Status Response Date of Assessm ent Because of a physical, menta l, or emotional condition, do you have serious difficulty concentrating, remembering, or making decisions? (5 years old or older) No 12/22/2021 documented as of this encounter Progress Notes * Cherelle Mayers CRNP - 10/03/2024 11:14 AM EST 37w0d Growth scan today, final read in process. Preliminary report shows EFW 50th %ile, FINESSE 18.7 cm, vertex, +cardiac activity. No regular ctx, leaking, bleeding. Endorses movement. Has labor instructions at home. She was seen in the ER on Tuesday with complaint of chest pain; no evidence of PE or acute cardiac concern. Feeling much better today. Plans to use OCPs for contraception. GBS today. Return in 1 week. 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 Name of maintenance craftsman: CHRISTIAN Louis documented in this encounter Plan of Treatment Upcoming Encounters Date Type Department Care Team (Late st Contact Info) Description 10/09/2024 8:45 AM EST Office Visit Gynecology/Obstetrics [facility] [address] [facility] [place] [address] Cherelle Mayers CRNP [address] [facility] [place] [address] 09/17/2025 2:00 PM EDT Imaging Radiology [facility] 2nd [facility] [address] [facility] [place] [address] 09/27/2025 3:10 PM EDT Telemedicine Endocrinology [address] [place] [phone] Domitila Omalley MD [address] [facility] [place] [address] Scheduled Orders Name Type Priority Associated Diagnoses Orde r Schedule GROUP B STREP CULTURE/PCR Lab Routine Encounter for supervision of other normal in third trimester Expected: 10/03/2024, Expires: 10/03/2025 Scheduled Procedures Name Priority Associated Diagnoses Date/Ti me COLONOSCOPY FLEXIBLE PROXIMAL DIAGNOSTIC Recall Screen for colon cancer Health Maintenance Due Date Last Done Comments HPV (Gardasil) Vaccine (2 - 3-dose series) 04/02/2015 03/05/2015 Depression Screening 08/28/2020 08/28/2019 COVID-19 Vaccine ( - season) 2024 02/04/2021, 01/14/2021 TSH 09/04/2025 09/04/2024, [...] as of this encounter Visit Diagnoses Diagnosis Encounter for supervision of other normal in [...] and were consensually agreed upon. Care Teams Electronic Service Technician Relationship Specialty Start Date End Date Anil Avila DO [address] [place] [address] PCP - General Family Medicine 08/16/23 documented as of this encounter
--- OUTSIDE RECORDS SUMMARY | 2024-10-18 23:11 | External Medical Summary | Summary of Care ---
Author Name Unknown Organization [facility] Address [address] [facility] [place] [address] Phone [phone] Care Team Providers Care [employer] Special Education Teacher Name Role Phone Anil Avila DO Primary Care Provider [phone] Reason for Visit * Reason Comments Return Visit Encounter Details Date Type Department Care Team (Late st Contact Info) Description 10/03/2024 11:45 AM EST Office Visit Gynecology/Obstetric s William Raphael [address] [place] [address] BackCherelle mays CRNP [address] [place] [address] Encounter for supervision of other normal in [...] Assessment & Plan: She states that her txfreu-gl-ucw has a history of some type of [...] trimester 07/08/2020 01/26/2021 Overview: She currently follows [facility] endocr[place] for management of geovanna thyroiditis. She [...] money to get more. Never true 04/11/2024 [place] Depression Scale Answer Date Recorded [place] Depression Scale Total 6 09/04/2024 The thought [...] contraception. GBS today. Return in 1 week. After School Counselor Documentation Provider requested end finder twisting department. Name of end finder twisting department: CHRISTIAN Louis documented in this encounter Plan of Treatment Upcoming Encounters Date Type Department Care Team (Late st Contact Info) Description 10/09/2024 8:45 AM EST Office Visit Gynecology/Obstetrics [facility] [address] [facility] [place] [address] Cherelle Mayers CRNP [address] [facility] [place] [address] 09/17/2025 2:00 PM EDT Imaging Radiology [facility] 2nd [facility] [address] [facility] [place] [address] 09/27/2025 3:10 PM EDT Telemedicine Endocrinology [address] [place] [phone] Domitila Omalley MD [address] [facility] [place] [address] Pending Results Name Type Priority Associated Diagnoses Date /Time GROUP B STREP CULTURE/PCR Lab Routine Encounter for supervision of other normal in third trimester 10/03/2024 11:43 AM EST Scheduled Orders Name Type Priority Associated Diagnoses [...] and were consensually agreed upon. Care Teams [employer] Special Education Teacher Relationship Specialty Start Date End Date Anil Avila DO [address] [place] [address] PCP - General Family Medicine 08/16/23 documented as of this encounter
--- OUTSIDE RECORDS SUMMARY | 2024-10-18 23:11 | External Medical Summary ---
Author Name Unknown Address Unknown Organization [id number]:[facility] - [facility] [address] [place] [address] Laboratory Report Ordering Provider Test Date Status DARIAN JORDAN 10/03/2024 11:43:37 Final Observation Date Value Abnormality Reference (Units ) Status Streptococcus agalactiae DNA [Presence] in Specimen by CAROLYN with probe detection 10/03/2024 11:43:37 Negative Negative Final No Group B Streptococcus det ected by culture-enhanced PCR (amplified probe). GBS [facility] 10/03/2024 11:43:37 0.0 Final GBS [facility] - [facility] 10/03/2024 11:43:37 31.4 Final Performing Location [facility] - [facility] [address] [place] [address]
[2024-10-19 06:11] LABS: Hematocrit (blood only) 32.3 % (37.0-47.0); Hemoglobin 11.2 g/dl (12.0-16.0); Mean Corpuscular Hemoglobin 32.5 pg (25.0-34.0); Mean Corpuscular Hgb Conc 34.7 g/dL (32.0-36.0); Mean Corpuscular Volume 93.6 fL (80.0-100.0); Mean Platelet Volume 12.6 fL (9.4-12.4); Platelet Count 148 K/uL (130-400); RDW Coefficient of Variation 12.4 % (11.5-14.5); RDW Standard Deviation 42.8 fL (36.4-46.3); Red Blood Count 3.45 M/uL (4.20-5.40)
[2024-10-19] MEDS: LEVOTHYROXINE SODIUM 150 MCG TABLET PO SCH (06:25)
--- NOTE | 2024-10-19 08:16 | Obstetrical Progress Note ---
Date of Service October 19, 2024 Assessment & Plan Admission and Anticipated Discharge Date Admission Date: October 17, 2024 Subjective Patient is seen and examined. She feels well, started to have bilateral groin/ upper medial thigh since yesterday afternoon. It is under control with Motrin and Percocet and then comes back. It can happen in bed and gets worse with ambulation. She had similar pain after her 1st delivery and it resolved. Ambulating without dizziness Voiding without difficulty, no pain No problem with BM. Tolerating regular diet with out N&V Bleeding is minimal No fever/ chills/ CP/ SOB/ N&V/ Leg pain Breast feeding without problems Vital Signs Temp Pulse Resp BP Pulse Ox O2 Del Method 10/18/24 23:08 36.4 C L 58 L 16 109/62 97 Room Air 10/18/24 19:15 36.3 C L 64 16 113/68 97 Room Air 10/18/24 11:58 36.6 C 52 L 126/78 Room Air 10/18/24 09:00 36.5 C 62 105/68 Room Air Lab Results 10/17/24 10/19/24 Range/Units 21:02 05:52 WBC 9.05 8.20 (4.8-10.8) K/ul RBC 3.67 L 3.45 L (4.20-5.40) M/uL Hgb 11.7 L 11.2 L (12.0-16.0) g/dl Hct 33.9 L 32.3 L (37.0-47.0) % MCV 92.4 93.6 (80.0-100.0) fL MCH 31.9 32.5 (25.0-34.0) pg MCHC 34.5 34.7 (32.0-36.0) g/dL RDW Std Deviation 42.0 42.8 (36.4-46.3) fL RDW Coeff of Leonor 12.2 12.4 (11.5-14.5) % Plt Count 162 148 (130-400) K/uL MPV 12.7 H 12.6 H (9.4-12.4) fL Treponema pallidum Ab Negative (Negative) PE: General: Alert, orientedx3, NAD Abd: soft, NT, fundus firm, below Umbilicus Perineum intact, Lochia rubra minimal Ext; NT, no edema Hip ROM normal/ hyperflexible joints, no pain with motio No erythema non tender groin and joints AP: 34 yo s/p , ppd# 1 VSS Afebrile doing well Musculoskeletal pain, plan to observe with pain meds and reevaluare in the afternoon Continue routine care All questions were answered Plan to D/C home in the afternoon if improves Results & Data Vital Signs (Past 12 Hours) Vital Signs Temp Pulse Resp BP Pulse Ox O2 Del Method 10/18/24 23:08 36.4 C L 58 L 16 109/62 97 Room Air
[2024-10-19 09:01] VITALS: BP 117/75; PULSE 71; RESP 18; O2SAT 98
[2024-10-19] MEDS: ACETAMINOPHEN 325 MG TAB PO PRN (09:59)
[2024-10-19] MEDS ORDERED: bisacodyL 5 MG TABEC PO SCH (20:00)
== END 2024-10-19 14:30 | disposition home health service (06) | DRG 807 ==
LOC: OPB 19:58 → 4S1 20:00 → 4E2 10-18 03:32